=== PATIENT | male | born 1990 | race Caucasian/White ===

== ENCOUNTER 2017-04-10 20:50 | Emergency (ER) | payer OTHER ==
[2017-04-10 20:58] VITALS: BP 145/92; PULSE 95; RESP 18; TEMP 97.5; O2SAT 98
--- NOTE | 2017-04-10 21:18 | ED PDOC ---
Lower Extremity Pain/Injury Time Seen by Provider: 04/10/17 21:00 Chief Complaint (Nursing): Lower Extremity Problem/Injury Chief Complaint (Provider): Right foot pain History Per: Patient History/Exam Limitations: no limitations Onset/Duration Of Symptoms: Days (4) Current Symptoms Are (Timing): Still Present Severity: Moderate Additional History Per: Patient Additional Complaint(s): The patient is a 26yo male, presents to the ED for evaluation of right foot swelling, present for the psat 5 days which has been worsening. Patient reports he was seen at [facility] for the same symptoms and was discharged home. Patient reports mild pain to his foot but denies any other medical complaints. Past Medical History Reviewed: Historical Data, Nursing Documentation, Vital Signs Vital Signs: Last Vital Signs Temp 97.5 F L 04/10/17 20:56 Pulse 95 H 04/10/17 20:56 Resp 18 04/10/17 20:56 BP 145/92 H 04/10/17 20:56 Pulse Ox 98 04/10/17 20:56 - Medical History PMH: Asthma - Surgical History Surgical History: No Surg Hx - Family History Family History: States: Unknown Family Hx - Home Medications Home Medications: Ambulatory Orders Medication Instructions Recorded Albuterol HFA [Ventolin HFA 90 2 puff IH Q4H #1 puff 05/04/16 mcg/actuation (8 g)] Azithromycin [Zithromax] 500 mg PO DAILY #6 tab 05/04/16 Naproxen [Naprosyn] 500 mg PO Q12H #20 tab 05/04/16 Fluconazole [Diflucan] 150 mg PO WM #6 tab 04/10/17 - Allergies Allergies/Adverse Reactions: Allergies Allergy/AdvReac Type Severity Reaction Status Date / Time No Known Allergies Allergy Verified 12/14/15 12:41 Review of Systems ROS Statement: Except As Marked, All Systems Reviewed And Found Negative Musculoskeletal: Positive for: Foot Pain (right foot swelling and pain) Neurological: Negative for: Weakness, Numbness Physical Exam - Reviewed Nursing Documentation Reviewed: Yes Vital Signs Reviewed: Yes - Physical Exam Appears: Positive for: Well, Non-toxic, No Acute Distress Head Exam: Positive for: ATRAUMATIC, NORMAL INSPECTION, NORMOCEPHALIC Skin: Positive for: Normal Color Eye Exam: Positive for: Normal appearance Neck: Positive for: Normal Cardiovascular/Chest: Positive for: Regular Rate, Rhythm Respiratory: Negative for: Respiratory Distress Extremity: Positive for: Normal ROM, Swelling (swelling noted to right foot, fissures noted in webspace between right 2nd and 3rd toe. ). Negative for: Deformity Neurologic/Psych: Positive for: Alert, Oriented. Negative for: Motor/Sensory Deficits - ECG O2 Sat by Pulse Oximetry: 98 (RA) Pulse Ox Interpretation: Normal Medical Decision Making Medical Decision Making: Time: 2107 Impression: Tinea pedis Plan: -- Patient to be given prescription for anti-fungal medication and informed to follow up with his pcp. Scribe Attestation: Documented by Virginia Samaniego acting as a scribe for RAMAN Chavira Provider Attestation: All medical record entries made by the Scribe were at my direction and personally dictated by me. I have reviewed the chart and agree that the record accurately reflects my personal performance of the history, physical exam, medical decision making, and the department course for this patient. I have also personally directed, reviewed, and agree with the discharge instructions and disposition. Disposition - Clinical Impression Clinical Impression: Tinea pedis - Patient ED Disposition Is Patient to be Admitted: No - Disposition Referrals: [facility] [Outside] Disposition: Routine/Home Disposition Time: 21:30 Condition: STABLE Prescriptions: Fluconazole [Diflucan] 150 mg PO WM #6 tab Instructions: Tinea Pedis (ED) Forms: [id number] [email or web address] (Gambian)
== END 2017-04-10 21:57 | disposition home or self-care (01) ==
LOC: H.ER 20:50
DX: B35.3 Tinea pedis (principal); J45.909 Unspecified asthma, uncomplicated

== ENCOUNTER 2018-11-15 20:08 | Emergency (ER) | payer SELFPAY ==
[2018-11-15 20:08] VITALS: BMI 21.9
[2018-11-15 20:18] VITALS: RESP 20
[2018-11-15 21:27] LABS: BASO # 0.1 K/uL (0.0-0.2); BASO % 0.9 % (0.0-2.0); EOS # 0.1 K/uL (0.0-0.7); EOS % 2.1 % (0.0-4.0); HEMOGLOBIN 13.1 g/dL (12.0-18.0); LYMPH % 30.1 % (20.0-40.0); MEAN CELL VOLUME 94.2 fl (80.0-94.0); MEAN CORPUSCULAR HEMOGLOBIN 31.5 pg (27.0-31.0); MEAN CORPUSCULAR HGB CONC 33.4 g/dL (33.0-37.0); MEAN PLATELET VOLUME 9.4 fl (7.2-11.7); MONO # 0.7 K/uL (0.0-0.8); MONO % 9.9 % (0.0-10.0); NEUT # 3.8 K/uL (1.8-7.0); NRBC % 0.1 % (0.0-0.0); RBC 4.17 Mil/uL (4.40-5.90); RED CELL DISTRIBUTION WIDTH 14.5 % (11.5-14.5); WHITE BLOOD COUNT 6.6 K/uL (4.8-10.8)
[2018-11-15 21:40] LABS: BLOOD UREA NITROGEN 16 mg/dl (9-20); GFR NON-AFRICAN AMERICAN > 60
[2018-11-15 22:16] VITALS: O2SAT 99
--- NOTE | 2018-11-15 22:20 | ED PDOC ---
HPI: Chest Pain Time Seen by Provider: 11/15/18 20:38 Chief Complaint (Nursing): Chest Pain Chief Complaint (Provider): chest pain History Per: Patient Additional Complaint(s): 28 y/o M with no significant PMH who presents with chest pain x 3 days. Pt states that he has had left sided chest pain for the past 3 days that is pressure like but occasionally feels sharp. When pain is sharp, he has SOB and lightheadedness that resolved with improvement in pain. He otherwise denies SOB. It improves with pressing on his chest. He has not taken any medication for the pain. Denies N/V, diarrhea, cough, nasal congestion, sore throat, ear pain. Denies hx of HTN or CAD. Past Medical History Reviewed: Historical Data, Nursing Documentation, Vital Signs Vital Signs: Last Vital Signs Temp 98.3 F 11/15/18 22:16 Pulse 81 11/15/18 22:16 Resp 20 11/15/18 22:16 BP 138/81 11/15/18 22:16 Pulse Ox 99 11/15/18 22:16 - Medical History PMH: Asthma - Family History Family History: States: Unknown Family Hx - Immunization History Hx Tetanus Toxoid Vaccination: Yes Hx Influenza Vaccination: No Hx Pneumococcal Vaccination: No - Home Medications Home Medications: Ambulatory Orders Medication Instructions Recorded Ibuprofen [Motrin] 600 mg PO Q6 #25 tab 09/28/18 oxyCODONE/Acetaminophen [Percocet 1 tab PO Q6 #10 tab 09/28/18 5/325 mg Tab] Ibuprofen [Motrin Tab] 600 mg PO Q6 PRN 7 Days tab 11/15/18 - Allergies Allergies/Adverse Reactions: Allergies Allergy/AdvReac Type Severity Reaction Status Date / Time No Known Allergies Allergy Verified 11/15/18 20:16 JOJO Risk Score for UA/NSTEMI - JOJO Risk Score Age > 64: NO 3 or more CAD Risk Factors: NO Known CAD (Stenosis greater than 50%): NO Aspirin use in past 7 days: NO Severe Angina: NO EKG ST changes greater than 0.5mm: NO JOJO Score: 0 Risk %: 5% Wells Criteria for PE - Wells Criteria for Pulmonary Embolism Clinical Signs and Symptoms of DVT: No P.E is #1 Diagnosis, or Equally Likely: No Heart Rate >100: No Immobilization at least 3 days;Surgery previous 4 weeks: No Previous, objectively diagnosed PE or DVT: No Hemoptysis: No Malignancy w/treatment within 6 months, or palliative: No Total Score: 0 Review of Systems Constitutional: Negative for: Fever, Chills Cardiovascular: Positive for: Chest Pain. Negative for: Palpitations Respiratory: Positive for: Shortness of Breath. Negative for: Cough Gastrointestinal: Negative for: Nausea, Vomiting, Abdominal Pain, Diarrhea Physical Exam - Reviewed Nursing Documentation Reviewed: Yes Vital Signs Reviewed: Yes - Physical Exam Appears: Positive for: Uncomfortable (anxious) Skin: Positive for: Normal Color Eye Exam: Positive for: Normal appearance ENT: Positive for: Normal ENT Inspection Cardiovascular/Chest: Positive for: Regular Rate, Rhythm. Negative for: Chest Non Tender (+ tenderness on palpation of left chest below nipple, no ecchymosis or erythema) Respiratory: Positive for: Normal Breath Sounds Gastrointestinal/Abdominal: Positive for: Normal Exam Lymphatic: Positive for: Deferred Neurological/Psych: Positive for: Awake, Alert, Oriented, Mood/Affect (anxious) - Laboratory Results Result Diagrams: 11/15/18 21:24 11/15/18 21:24 - ECG O2 Sat by Pulse Oximetry: 99 Medical Decision Making Medical Decision Making: CXR Ibuprofen 600mg PO x 1 EKG EKG: sinus, HR 97, peaked T waves with repolarization abnormality. CXR read by me: no acute pathology. Results explained to patient and Stable for D/c home with referral to PMD and prescription for Ibuprofen for likely costochondritis. Disposition - Clinical Impression Clinical Impression: Costochondritis - Patient ED Disposition Is Patient to be Admitted: No - Disposition Referrals: [facility] [Outside] Disposition: Routine/Home Disposition Time: 23:43 Condition: STABLE Additional Instructions: Take Ibuprofen for pain. Return to ER if you develop shortness of breath or worsening symptoms. Follow up with your primary care provider if symptoms pers ist. Prescriptions: Ibuprofen [Motrin Tab] 600 mg PO Q6 PRN 7 Days tab PRN Reason: Pain, Moderate (4-7) Instructions: Costochondritis (DC) Forms: [employer] (Afghan) Print Language: PERSIAN
[2018-11-15 23:50] VITALS: BP 132/78; PULSE 84; TEMP 98.5
--- NOTE | 2018-11-16 09:54 | RAD ---
Date of service: 11/15/2018 HISTORY: shortness of breath, cough COMPARISON: Comparison chest 05/04/2016 TECHNIQUE: Chest PA and lateral views FINDINGS: LUNGS: No active pulmonary disease. PLEURA: No significant pleural effusion identified. No pneumothorax apparent. CARDIOVASCULAR: No aortic atherosclerotic calcification present. Normal cardiac size. No pulmonary vascular congestion. OSSEOUS STRUCTURES: No significant abnormalities. VISUALIZED UPPER ABDOMEN: Normal. OTHER FINDINGS: None. IMPRESSION: No active disease.
--- NOTE | 2018-11-16 14:46 | CARD ---
APPROVED REPORT Date of service: 11/15/2018 EKG Measurement Heart [id number] <Conclusion> Normal sinus rhythm Moderate voltage criteria for LVH, may be normal variant Borderline ECG
== END 2018-11-15 23:43 | disposition home or self-care (01) ==
LOC: H.ER 20:08
DX: M94.0 Chondrocostal junction syndrome [Tietze] (principal)